=== PATIENT | female | born 1975 | race Caucasian/White ===

== ENCOUNTER 2017-01-19 05:49 | Day surgery (SDC) | payer MEDICARE, OTHER ==
[~2017-01-19] VITALS: Ht 170.2 cm; Wt 52.7 kg
[~2017-01-19 05:49] MED LIST: BUSP15 PO; CALC600T2 PO; CARI350 PO; CYAN1TAB44 PO; FIORIT PO; IBUP-2070 PO; LIDO700A TD; MAGN200T5 PO; MORP-11 PO; OXYC10 PO; PROP20 PO; SERT50TA12 PO; SODIUM CHLORIDE 0.9% 1,000 ML IV ONE; VITA100049 PO; VITA80008 PO
[2017-01-19] MEDS ORDERED: SODIUM CHLORIDE 0.9% 1,000 ML IV ONE (05:56)
[2017-01-19] MEDS ORDERED: BUPIVACAINE HCL/PF 0.75% 10 ML VIAL ONE (07:22)
[2017-01-19] MEDS ORDERED: TRIAMCINOLONE ACETONIDE 40 MG/ML VIAL ONE ×2 (07:22→08:24)
[2017-01-19] MEDS ORDERED: LIDOCAINE HCL/PF 1% 30 ML VIAL ONE (07:23)
[2017-01-19] MEDS ORDERED: LIDOCAINE HCL/PF 2% 5 ML VIAL ONE (07:23)
[2017-01-19] MEDS ORDERED: IOHEXOL 300 MG/ML 10 ML VIAL ONE (07:23)
[2017-01-19 07:54] VITALS: BP 139/78
[2017-01-19] MEDS ORDERED: IOHEXOL 300 MG/ML 10 ML VIAL IARTIC ONE (08:30)
[2017-01-19] MEDS ORDERED: TRIAMCINOLONE ACETONIDE 40 MG/ML VIAL IARTIC ONE (08:30)
[2017-01-19] MEDS ORDERED: BUPIVACAINE HCL/PF 0.75% 10 ML VIAL IARTIC ONE (08:30)
[2017-01-19] MEDS ORDERED: LIDOCAINE HCL 1%/EPI 1:200,000/PF 30 ML VIAL INJ ONE (08:30)
[2017-01-19 08:50] VITALS: BP 98/57
[2017-01-19] MEDS ORDERED: MIDAZOLAM HCL 2 MG/2 ML VIAL IVP ONE (12:00)
[2017-01-19] MEDS ORDERED: FentaNYL CITRATE-PF 100 MCG/2 ML VIAL IVP ONE (12:00)
== END 2017-01-19 10:05 | disposition home or self-care (01) ==
LOC: SDS 05:49
PROVIDERS: ATTEND Specialist
DX: M54.17 Radiculopathy, lumbosacral region (principal); M79.1 Myalgia; I10 Essential (primary) hypertension; I49.3 Ventricular premature depolarization; D64.9 Anemia, unspecified; G89.29 Other chronic pain; M54.9 Dorsalgia, unspecified; N13.30 Unspecified hydronephrosis; F32.9 Major depressive disorder, single episode, unspecified; C53.9 Malignant neoplasm of cervix uteri, unspecified; Z98.51 Tubal ligation status; Z98.890 Other specified postprocedural states; Z87.891 Personal history of nicotine dependence
CPT/HCPCS: 20552; 64483; J2250; J3010; J3301; J3490 ×2; J7030; Q9967